=== PATIENT | male | born 1945 | race Caucasian/White ===

== ENCOUNTER 2021-12-04 14:34 | Emergency (ER) | payer MEDICARE ==
[~2021-12-04 14:34] MED LIST: ATENOLOL25 MG PO; CARBIDOPA-LEVO1 EAC6 PO; CITALOPRAM HBR40 MG PO; COZAAR100 MG PO; FLOMAX0.4 MG PO; FLONASE ALLER15.8 ML; LEVSIN-SL0.125 M1 PO; PROTONIX 40MG T40 MG PO; SINGULAIR10 MG PO
[2021-12-04 15:40] LABS: BASOPHIL 1.1 % (0-2); HCT 42.5 % (42.0-52.0); HGB 14.4 g/dl (13.2-18.0); MCH 31.6 pg (25.0-31.0); MCHC 33.9 g/dL (32.0-36.0); MCV 93.2 fL (78.0-100.0); MONOCYTE 12.5 % (0-12); MPV 11.6 fL (6.0-9.5); NEUTROPHIL 55.2 % (41-80); NRBC 0; PLT 77 K/uL (150-400); RBC 4.56 M/uL (4.70-6.00); RDW 13.5 % (11.5-14.0); WBC 4.6 K/uL (4.0-10.5)
[2021-12-04 15:41] LABS: INR 1.3 (0.9-1.2); PROTHROMBIN TIME 15.5 SECONDS (11.8-13.4); PTT 32.7 SECONDS (24.4-34.7)
[2021-12-04 16:00] LABS: BILIRUBIN - TOTAL 0.9 mg/dL (0.2-1.0); CREATININE 0.75 mg/dL (0.67-1.17); GLOBULIN (CALCULATION) 3.8 g/dL; POTASSIUM 4.2 mmol/L (3.5-5.1); TOTAL PROTEIN 7.8 g/dL (6.4-8.2)
[2021-12-04 18:47] LABS: BILIRUBIN NEGATIVE (NEGATIVE); BLOOD NEGATIVE Ery/uL (NEGATIVE); CLARITY CLEAR (CLEAR); COLOR YELLOW (YELLOW); GLUCOSE (U) NORMAL (NORMAL); LEUKOCYTES NEGATIVE Leu/uL (NEGATIVE); NITRITE NEGATIVE (NEGATIVE); PROTEIN NEGATIVE (NEGATIVE); UROBILINOGEN 0.2 mg/dL (0.2-1.0)
== END 2021-12-05 02:23 | disposition other institution (70) ==
LOC: FER 14:34
PROVIDERS: Emergency Medicine
DX: G45.9 Transient cerebral ischemic attack, unspecified (principal); R47.01 Aphasia; I16.0 Hypertensive urgency; I10 Essential (primary) hypertension; Z20.822 Contact with and (suspected) exposure to COVID-19
CPT/HCPCS: 36415; 70450; 71045; 80053; 80061; 81003; 84484; 85025; 85610; 85730; 93005; J2270; J2405; J7030; Q9967; U0002